=== PATIENT | female | born 1985 | race Caucasian/White ===

== ENCOUNTER 2017-01-26 21:47 | Emergency (ER) | payer MEDICAID ==
[2017-01-26] MEDS ORDERED: AMOXICILLIN 500MG CAPSULE PO ONE (22:02)
[2017-01-26] MEDS ORDERED: ACETAMINOPHEN 325 MG TAB PO ONE (22:02)
--- NOTE | 2017-01-26 22:07 | Emergency Department Record ---
History of Present Illness - General Chief complaint: ENT Stated complaint: RT EAR PAIN Time Seen by Provider: 01/26/17 21:58 Source: Patient Mode of Arrival: Ambulatory Limitations: No limitations - History of Present Illness Initial comments: The patient is here due to R ear and jaw pain for one day. She denies any trauma , runny nose, cough, headache, ST, or fever. She does have a hx of really bad teeth. MD complaint: Ear pain, Tooth pain Onset/Timin -: Days(s) Location: R ear Severity: Severe Severity scale (1-10): 10 Consistency: Constant, Getting worse Context- Dental: History of dental caries, Poor dental care - Related Data Home Medications Medication Instructions Recorded Confirmed Last Taken Acetaminophen [Tylenol 500Mg Tab] 1,000 mg PO Q6H PRN 01/26/17 01/26/17 Unknown Previous Rx's Medication Instructions Recorded Amoxicillin 500Mg Capsule [Amoxil] 500 mg PO TID #21 tab 01/26/17 Allergies Allergy/AdvReac Type Severity Reaction Status Date / Time No Known Drug Allergies Allergy Unverified 12/01/16 10:37 Travel Screening - Travel/Exposure Within Last 30 Days Have you traveled within the last 30 days?: No Review of Systems Constitutional: Denies: Chills, Fever Eyes: Denies: Eye discharge ENT: Denies: Congestion Respiratory: Denies: Cough, Dyspnea Past Medical History - SOCIAL HISTORY Smoking Status: Current every day smoker - RESPIRATORY Hx Respiratory Disorders: No - CARDIOVASCULAR Hx Cardio Disorders: No - NEURO Hx Neuro Disorders: No - GI Hx GI Disorders: No - Hx Genitourinary Disorders: No - ENDOCRINE Hx Endocrine Disorders: No - MUSCULOSKELETAL Hx Musculoskeletal Disorders: No - PSYCH Hx Psych Problems: No - HEMATOLOGY/ONCOLOGY Hx Hematology/Oncology Disorders: No Family Medical History Any Significant Family History?: Yes Hx Diabetes: Mother Hx Heart Disease: Father, Grandparents Hx HTN: Father Hx Kidney Disease: Mother Physical Exam - General General Appearance: Alert, Oriented x3, Cooperative, No acute distress - Head Head exam: Atraumatic, Normocephalic, Normal inspection - Eye Eye exam: Normal appearance, PERRL - ENT ENT exam: Normal exam, Mucous membranes moist, Normal external ear exam, Normal orophraynx, TM's normal bilaterally Ear exam: Normal external inspection. negative: Auricular trauma, External canal tenderness Teeth exam: Dental caries, Dental tenderness # (30-32. Palpation of the decayed and rotten teeth does bring on the pain.). negative: Normal inspection Throat exam: Normal inspection. negative: Tonsillar erythema, Tonsillar exudate - Neck Neck exam: Normal inspection, Full ROM. negative: Lymphadenopathy, Meningismus , Tenderness - Respiratory Respiratory exam: Normal lung sounds bilaterally. negative: Respiratory distress - Cardiovascular Cardiovascular Exam: Regular rate, Normal rhythm, Normal heart sounds Course Vital Signs 01/26/17 21:54 Temperature 97.7 F Pulse Rate [ 77 Pulse Ox Probe] Respiratory 18 Rate Blood Pressure 142/88 [Left Arm] Pulse Ox 98 - Reevaluation(s) Reevaluation #1: I did explain to the patient that it appears she has a dental problem. We will prescribe an oral Abx and pain medicines and have her see a Dentist GRISELDA. 01/26/17 22:06 Disposition Disposition: Discharge Clinical Impression: Pain, dental Disposition: Home, Self-Care Condition: (2) Stable Instructions: Toothache (ED) Additional Instructions: Please take the Amox and Tylenol as directed and may use OTC dental pain relief meds. Please see your Dentist GRISELDA. Please see your PCP for further medicines. Prescriptions: Amoxicillin 500Mg Capsule [Amoxil] 500 mg PO TID #21 tab Forms: Patient Portal Access Time of Disposition: 22:09 Quality - Quality Measures Quality Measures: N/A - Blood Pressure Screening View Details: Yes Does Patient Have Any of the Following: No Blood Pressure Classification: Pre-Hypertensive BP Reading Systolic Measurement: 142 Diastolic Measurement: 88 Screening for High Blood Pressure: < Pre-Hypertensive BP, F/U Documented > [ [id number]] Pre-Hypertensive Follow-up Interventions: Referral to alternative/primary care provider.
== END 2017-01-26 22:15 | disposition home or self-care (01) ==
LOC: ER 21:47
DX: K08.89 Other specified disorders of teeth and supporting structures (principal); H92.01 Otalgia, right ear; F17.210 Nicotine dependence, cigarettes, uncomplicated
CPT/HCPCS: 99282